=== PATIENT | male | born 1990 | race Two or more races ===

== ENCOUNTER 2025-06-10 05:00 | Emergency (ER) | payer MEDICAID, SELFPAY ==
[2025-06-10 05:01] VITALS: BMI 20.1
[2025-06-10 05:15] VITALS: BP 123/75; PULSE 95; RESP 16; TEMP 37.1; O2SAT 98
--- NOTE | 2025-06-10 05:52 | PD.EDRME ---
Rapid Medical Screening Exam RME Arrival date/time: 06/10/25 05:00 Chief Complaint: Urogenital-Male Time Seen by Provider: 06/10/25 05:50 Vital signs: Vital Signs Temperature 98.7 F 06/10/25 05:15 Pulse Rate 95 06/10/25 05:15 Respiratory Rate 16 06/10/25 05:15 Blood Pressure 123/75 06/10/25 05:15 Pulse Oximetry (%) 98 06/10/25 05:15 Oxygen Delivery Method Room Air 06/10/25 05:15 E Narrative: 35-year-old male with no known renal problems presents to the ER complaining of burning while he pees for the past 2 weeks. Denies fever, abdominal pain, nausea vomiting, flank pain, testicle pain, urethral discharge.
[2025-06-10 06:30] LABS: Collection Type, Urine Clean Catch; Squamous Epithelial Cell,Urine 0 /hpf (0-5)
[2025-06-10 06:51] LABS: Amorphous Crystals,Urine Present (Absent); Bacteria,Urine Rare; Bilirubin,Urine Negative (Negative); Blood,Urine Trace (Negative); Clarity,Urine Turbid (Clear/Hazy); Color,Urine Yellow (Lt Yel-Yel); Glucose, Urine Negative (Negative); Ketones,Urine Negative (Negative); Leukocyte Esterase,Urine Positive (Negative); Nitrite,Urine Negative (Negative); PH,Urine 6.0 (5.0-7.0); Protein,Urine Trace (Neg - Trace); RBC,Urine 19 /hpf (0-3); Specific Gravity,Urine 1.032 (1.001-1.035); Urobilinogen,Urine Negative mg/dL (0.0-1.0); WBC,Urine 303 /hpf (0-5)
[2025-06-10 06:56] LABS: Culture Indicated,Urine Yes
--- NOTE | 2025-06-10 07:44 | PC.NURSE ---
called pt back, no answer at this time
--- NOTE | 2025-06-10 07:58 | PC.NURSE ---
CALLED PT BACK, NO ANSWER AT THIS TIME
--- NOTE | 2025-06-10 08:07 | PC.NURSE ---
CALLED PT BACK, NO ANSWER AT THIS TIME
--- NOTE | 2025-06-10 08:12 | PC.NURSE ---
PT CALLED X 3, NO ANSWER X 3. PT ELOPED.
[2025-06-10 10:42] LABS: Chlamydia trachomatis PCR Positive (Not Detect); Neisseria Gonorrhoeae DNA PCR Positive (Not Detect); Trichomonas Negative (Negative)
== END 2025-06-10 08:12 | disposition left against medical advice (07) ==
LOC: SERX 06:42
PROVIDERS: Physician Assistant; Emergency Provider Emergency Medicine
DX: Z53.21 Procedure and treatment not carried out due to patient leaving prior to being seen by health care provider (principal)
CPT/HCPCS: 81001; 87086; 87491; 87591; 87661; 99283

== ENCOUNTER 2025-07-31 06:16 | Emergency (ER) | payer MEDICAID, SELFPAY ==
[2025-07-31 06:17] VITALS: PULSE 82; O2SAT 99
--- NOTE | 2025-07-31 06:20 | PC.NURSE ---
[facility] HERE TO SEE PT.
[2025-07-31 06:31] VITALS: BP 123/81; PULSE 78; RESP 19; TEMP 36.6; O2SAT 98; BMI 25.1
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
[2025-07-31 07:18] LABS: Basophils # (Auto) 0.1 Thou/mm3 (0.0-0.2); Basophils % (Auto) 1 % (0-2.5); Eosinophils # (Auto) 0.1 Thou/mm3 (0.0-0.5); Eosinophils % (Auto) 1 % (0-10); Hematocrit 39.3 % (41.0-53.0); Hemoglobin 12.8 g/dL (13.5-16.0); Immature Granulocytes Auto 0.02 Thou/mm3 (0.00-0.00); Lymphocytes # (Auto) 1.7 Thou/mm3 (1.0-4.8); Lymphocytes % (Auto) 16 % (10-50); Mean Corpuscular HGB Conc 32.6 g/dl (31.0-37.0); Mean Corpuscular Hemoglobin 29.4 pg (25.0-35.0); Mean Corpuscular Volume 90 fL (80-100); Monocytes # (Auto) 0.8 Thou/mm3 (0.0-0.8); Monocytes % (Auto) 8 % (0-12); Neutrophils # (Auto) 7.5 Thou/mm3 (1.8-7.7); Neutrophils % (Auto) 74 % (37-80); Nucleated Red Blood Cell # 0.00 Thou/mm3 (0.00-0.00); Nucleated Red Blood Cell % 0 /100 WBC (0); Platelet Count 259 Thou/mm3 (140-440); RDW Standard Deviation 44.6 fL (35.1-43.9); Red Blood Count 4.36 Miln/mm3 (4.50-5.90); White Blood Count 10.1 Thou/mm3 (3.8-10.6)
[2025-07-31] MEDS: HYDROcodone/APAP 5/325 TABLET 1 TAB PO (07:23)
[2025-07-31 07:27] LABS: INR 1.0 (0.9-1.3); Partial Thromboplastin Time 30.9 Seconds (22.0-36.0); Prothrombin Time 10.7 Seconds (9.0-12.2)
--- NOTE | 2025-07-31 07:29 | PC.NURSE ---
Pt made aware that an IV needs to be establish so he can get IV antibiotics, but Pt stated, I don't want an IV, I only take antibiotics in pills, and only from [facility] Pt is a GCS15, A&O x 4 and answering questions appropriately demonstration understanding. LDR NURSE Be made aware, no new orders received.
[2025-07-31 07:31] LABS: Alanine Aminotransferase 22 U/L (10-49); Albumin, Serum 4.6 gm/dL (3.5-5.0); Albumin/Globulin Ratio 1.9 (1.2-2.2); Alkaline Phosphatase 92 U/L (46-116); Anion Gap 8 (7-16); Aspartate Amino Transferase 29 U/L (0-34); BUN/Creatinine Ratio 15 Ratio (12-20); Bilirubin,Total 1.0 mg/dL (0.3-1.2); Blood Urea Nitrogen 12 mg/dL (9-23); Calcium 9.2 mg/dL (8.3-10.6); Calcium (Corrected) 9.2 mg/dL (8.5-10.1); Carbon Dioxide 29.3 mMol/L (20.0-31.0); Chloride 103 mMol/L (98-107); Creatinine (Component) 0.8 mg/dL (0.6-1.3); Estimated Creatinine Clearance 137.3 mL/min (>60); Globulin 2.4 gm/dL (2.3-3.5); Glucose 103 mg/dL (74-106); Osmolality,Calculated 279 (275-295); Potassium 3.4 mMol/L (3.4-5.1); Sodium 140 mMol/L (136-145); Total Protein 7.0 gm/dL (5.7-8.2); eGFR > 60 See Note
[2025-07-31 07:46] VITALS: BP 114/83; PULSE 67; RESP 19; TEMP 36.5; O2SAT 98
--- NOTE | 2025-07-31 08:02 | XR_ITS ---
Examination: CT right elbow, without contrast. 2-D sagittal reconstructions. 2-D coronal reconstructions. 3-D reconstructions. Date and time of exam: August 10, 2025, 0831 hours INDICATIONS: Patient fell today with into the elbow, elbow pain. CTDI: vol (mGy): 4.67 DLP: (mGycm): 976 Technique: Multiple 1.25 mm axial sections of the left elbow without intravenous contrast have been obtained. 2-D sagittal and coronal reconstructions have been obtained. 3-D reconstructions have been obtained. Low dose protocols were performed. One or more of the following dose reduction techniques were used; automated exposure control, adjustment of the mA and/or KV according to patient size, use of iterative reconstruction technique. Findings: Acute fracture posterior olecranon, sagittal image 38, 3 mm separation of the main fracture fragments Fracture line extends to the ulnar notch Distal humerus radial head and neck intact No elbow dislocation IMPRESSION: Acute fractures posterior olecranon
[2025-07-31 08:54] VITALS: BP 98/48; PULSE 77; RESP 19; TEMP 36.6; O2SAT 98
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
[2025-07-31 12:39] VITALS: BP 114/68; PULSE 78; RESP 20; O2SAT 99
== END 2025-07-31 12:27 | disposition home or self-care (01) ==
PROVIDERS: Nurse Practitioner Primary Care; Emergency Provider Family Medicine; PCP Family Medicine
DX: S52.021A Displaced fracture of olecranon process without intraarticular extension of right ulna, initial encounter for closed fracture (principal); V02.90XA Pedestrian on foot injured in collision with two- or three-wheeled motor vehicle, unspecified whether traffic or nontraffic accident, initial encounter; Y93.01 Activity, walking, marching and hiking; Z59.00 Homelessness unspecified
CPT/HCPCS: 29105; 36415; 73080; 73200; 80053; 85025; 85610; 85730; 99283; A9270

== ENCOUNTER 2025-08-09 12:01 | Emergency (ER) | payer MEDICAID, SELFPAY ==
[2025-08-09 12:02] VITALS: BMI 20.1
[2025-08-09 12:24] VITALS: BP 130/75; PULSE 90; RESP 19; TEMP 36.6; O2SAT 95
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
--- NOTE | 2025-08-09 12:59 | XR_ITS ---
Examination: Right elbow 3 views Technique: Elbow AP, oblique, lateral 3 views Indication: Trauma Exam date and time: 08/09/2025, 1:02 p.m. COMPARISON: CT and plain film from 07/31/2025. FINDINGS: Stable minimally minimally displaced fracture of the posterior aspect of the ulna olecranon. Stable joint effusion. No evidence of interval change. No other acute bony abnormality. IMPRESSION: Stable minimally displaced olecranon fracture as above
--- NOTE | 2025-08-09 14:41 | PC.NURSE ---
CALLED FOR PT FROM [facility]/OUTSIDE, NO [email or web address]@ [id number]
== END 2025-08-09 16:16 | disposition home or self-care (01) ==
PROVIDERS: Emergency Provider Emergency Medicine
DX: S52.021A Displaced fracture of olecranon process without intraarticular extension of right ulna, initial encounter for closed fracture (principal); V03.90XA Pedestrian on foot injured in collision with car, pick-up truck or van, unspecified whether traffic or nontraffic accident, initial encounter; Y93.01 Activity, walking, marching and hiking
CPT/HCPCS: 29105; 73070; 73080; 99282